=== PATIENT | female | born 1955 | race Caucasian/White ===

== ENCOUNTER 2019-07-20 23:59 | Emergency (ER) | payer MEDICARE, MEDICAID ==
[~2019-07-20] VITALS: Ht 160 cm; Wt 106.8 kg
[2019-07-21] MEDS ORDERED: ONDA8TAB6 PO (00:39)
[2019-07-21] MEDS ORDERED: HYDR-3965 PO (00:39)
[2019-07-21] MEDS ORDERED: ondansetron 4mg rapidly disintigrating tab PO ONE (00:40)
[2019-07-21] MEDS ORDERED: HYDROcodone/acetaminophen 5mg/325mg tablet PO ONE (00:40)
[2019-07-21 02:14] VITALS: BP 160/71
== END 2019-07-21 02:16 | disposition home or self-care (01) ==
LOC: ER 07-21
DX: S82.002A Unspecified fracture of left patella, initial encounter for closed fracture (principal); G43.909 Migraine, unspecified, not intractable, without status migrainosus; E78.00 Pure hypercholesterolemia, unspecified; I10 Essential (primary) hypertension; E11.42 Type 2 diabetes mellitus with diabetic polyneuropathy; W01.0XXA Fall on same level from slipping, tripping and stumbling without subsequent striking against object, initial encounter; Y93.89 Activity, other specified; Y92.090 Kitchen in other non-institutional residence as the place of occurrence of the external cause; Y99.9 Unspecified external cause status
CPT/HCPCS: 29505; 73564; 99284